=== PATIENT | female | born 1995 | race American Indian/Alaskan Native ===

== ENCOUNTER 2022-01-08 14:46 | Emergency (ER) | payer SELFPAY ==
[2022-01-08 16:50] VITALS: BP 126/81
--- NOTE | 2022-01-08 18:17 | XRay Report ---
RIGHT WRIST 2 VIEWS INDICATION / CLINICAL INFORMATION: injury. COMPARISON: None available. FINDINGS: BONES / JOINT(S): No fracture identified. The lunate is tilted anteriorly. There is also possible wid ening at the distal radial ulnar joint with posterior displacement of the ulna. This is worrisome for ligamentous injury. Dedicated 4 view wrist is recommended. SOFT TISSUES: No significant abnormality. ADDITIONAL FINDINGS: None. Signer Name: Ambrosio Washington MD Signed: 01/08/2022 6:13 PM Workstation Name: [id number]
--- NOTE | 2022-01-09 01:28 | Emergency Department Report ---
Upper Extremity - HPI Chief Complaint: Extremity Injury, Upper Stated Complaint: WRIST INJURY Time Seen by Provider: 01/09/22 01:26 Upper Extremity: Left Wrist Occurred When: Today (Pain and swelling status post fall.) Mechanism: Fall Severity: moderate Symptoms: Yes Pain with Movement, Yes Limited Range of Movement, Yes Swelling, No Deformity, No Numbness, No Weakness, No Bruising/Ecchymosis, No Laceration or Abrasion Other History: Patient 26-year-old female states she fell backwards today landing on her left wrist now with pain and swelling the same. Pain described as 7/10 exacerbated by movement. There is no numbness no tingling no gross deformity. ED Review of Systems ROS: Stated complaint: WRIST INJURY Other details as noted in HPI Constitutional: denies: chills, fever Eyes: denies: eye pain, eye discharge, vision change ENT: denies: ear pain, throat pain Respiratory: denies: cough, shortness of breath, wheezing Cardiovascular: denies: chest pain, palpitations Endocrine: no symptoms reported Gastrointestinal: denies: abdominal pain, nausea, diarrhea Genitourinary: denies: urgency, dysuria, discharge Musculoskeletal: other Skin: denies: rash, lesions Neurological: denies: headache, weakness, paresthesias Psychiatric: denies: anxiety, depression Hematological/Lymphatic: denies: easy bleeding, easy bruising ED Past Medical Hx - Medications Home Medications: Home Medications Medication Instructions Recorded Confirmed Last Taken Type traMADoL [Ultram] 50 mg PO Q6HR PRN #12 tablet 01/09/22 Unknown Rx Upper Extremity Exam - Exam General: Vital signs noted. No distress. Alert and acting appropriately. Head and Torso: No HEENT Abnormality, No Neck Tenderness, No Chest/Lungs Abnormality, No Abdominal Tenderness, No Back Tenderness Shoulder Exam: Yes Normal Range of Motion in Shoulder, No Shoulder Tenderness, No Clavicle Tenderness, No Shoulder Deformity, No AC Joint Tenderness Arm Exam: No Arm/Humerus Tenderness, No Arm Deformity Elbow: No Elbow Tenderness, No Normal Range of Motion in Elbow, No Elbow Deformity Forearm: No Forearm Tenderness, No Forearm Deformity, No Pain with Pronation, No Pain with Supination Wrist: Yes Wrist Tenderness, No Normal ROM in Wrist, No Wrist Deformity, No Snuffbox Tenderness, No Pain with Axial Thumb Compression Hand: Yes Normal ROM in Digit(s), No Hand Tenderness, No Hand Deformity, No Digit Tenderness, No Digit(s) Deformity, No Tendon Dysfunction CMS Exam: Yes Normal Distal Pulses, Yes Normal Capillary Refill, Yes Normal Distal Sensation, No Broken Skin ED Course Vital Signs 01/08/22 16:49 Temperature 98.7 F Pulse Rate 96 H Respiratory 18 Rate Blood Pressure 126/81 O2 Sat by Pulse 100 Oximetry ED Medical Decision Making - Radiology Data Radiology results: report reviewed, image reviewed RIGHT WRIST 2 VIEWS INDICATION / CLINICAL INFORMATION: injury. COMPARISON: None available. FINDINGS: BONES / JOINT(S): No fracture identified. The lunate is tilted anteriorly. There is also possible widening at the distal radial ulnar joint with posterior displacement of the ulna. This is worrisome for ligamentous injury. Dedicated 4 view wrist is recommended. SOFT TISSUES: No significant abnormality. ADDITIONAL FINDINGS: None. Signer Name: Ambrosio Washington MD Signed: 01/08/2022 6:13 PM Workstation Name: [id number] Transcribed By: ES Dictated By: Ambrosio Washington MD Electronically Authenticated By: Ambrosio Washington MD Signed Date/Time: 01/08/221812 DD/ 00 TD/TT: - Medical Decision Making Plan Velcro wrist splint, RICE therapy.NSAIDs as needed pain, follow-up with orthopedic surgery in 1 to 2 days. Return to emergency department should symptoms worsen. Critical care attestation.: If time is entered above; I have spent that time in minutes in the direct care of this critically ill patient, excluding procedure time. ED Disposition Clinical Impression: Left wrist sprain Qualifiers: Encounter type: initial encounter Qualified Code(s): S63.502A - Unspecified sp rain of left wrist, initial encounter Disposition: HOME / SELF CARE / HOMELESS Is pt being admited?: No Does the pt Need Aspirin: No Condition: Stable Instructions: Elastic Bandage and RICE Therapy, Wrist Sprain, Adult Additional Instructions: Take medications as prescribed, follow-up with orthopedic surgery in 1 to 2 days. Return to emergency department should symptoms worsen. Prescriptions: traMADoL [Ultram] 50 mg PO Q6HR PRN #12 tablet PRN Reason: Pain Referrals: EMPERATRIZ DÍAZ MD [Primary Care Provider] - 3-5 Days ROBBI PÉREZ MD [Staff Physician] - 3-5 Days Forms: Work/School Release Form(ED) Time of Disposition: 04:59
[2022-01-09] MEDS ORDERED: traMADol 50 MG TAB PO ONE (01:29)
== END 2022-01-09 03:00 | disposition home or self-care (01) ==
LOC: ED 14:46
DX: S63.502A Unspecified sprain of left wrist, initial encounter (principal); X58.XXXA Exposure to other specified factors, initial encounter; Y93.89 Activity, other specified; Y92.89 Other specified places as the place of occurrence of the external cause; Y99.8 Other external cause status
CPT/HCPCS: 99283